=== PATIENT | male | born 1945 ===

== ENCOUNTER 2017-02-10 20:59 | Emergency (ER) | payer BC, MEDICARE ==
[2017-02-10 21:03] VITALS: BP 96/58
--- NOTE | 2017-02-10 21:13 | UC ---
Bite Injury/Animal HPI - HPI Summary HPI Summary: complaint of bug bite on his left arm that he noticed 2 nights ago washed the bite off and put antibiotic ointment over it used a hot compress over his arm today denies pain in arm small red rash around bite concerned about it being a tick bite - History of Current Complaint Chief Complaint: [place] Stated Complaint: BUG BITE Time Seen by Provider: 02/10/17 21:01 Hx Obtained From: Patient - Allergies/Home Medications Allergies/Adverse Reactions: Allergies Allergy/AdvReac Type Severity Reaction Status Date / Time No Known Allergies Allergy Verified 12/04/13 11:39 PMH/Surg Hx/FS Hx/Imm Hx Previously Healthy: Yes - Surgical History Surgical History: Yes Surgery Procedure, Year, and Place: inguinal hernia x 2 - Social History Occupation: Employed Full-time Lives: With Family Alcohol Use: Weekly Alcohol Amount: 3 x week Substance Use Type: None Smoking Status (MU): Never Smoked Tobacco Review of Systems Constitutional: Negative Skin: Rash Eyes: Negative ENT: Negative Respiratory: Negative Cardiovascular: Negative Gastrointestinal: Negative Genitourinary: Negative Motor: Negative Neurovascular: Negative Musculoskeletal: Negative Neurological: Negative Psychological: Negative All Other Systems Reviewed And Are Negative: Yes Physical Exam Triage Information Reviewed: Yes Appearance: No Pain Distress, Well-Nourished, Thin Vital Signs: Initial Vital Signs Temp 97.7 F 02/10/17 21:01 Pulse 61 02/10/17 21:01 Resp 16 02/10/17 21:01 BP 96/58 02/10/17 21:01 Pulse Ox 100 02/10/17 21:01 Vital Signs Reviewed: Yes Eyes: Positive: Conjunctiva Clear ENT: Positive: Pharynx normal, TMs normal Neck: Positive: No Lymphadenopathy Respiratory: Positive: Chest non-tender, Lungs clear, Normal breath sounds, No respiratory distress Cardiovascular: Positive: RRR, No Murmur, Pulses Normal, Brisk Capillary Refill Abdomen Description: Positive: Nontender, Soft Bowel Sounds: Positive: Present Musculoskeletal: Positive: No Edema Neurological: Positive: Alert Psychological Exam: Normal Skin: Positive: rashes - left forearm 2cm area of erythema surrounding a dark purple bite site Bite Injury Course/Dx - Course Course Of Treatment: exam completed. will treat for possible tick bite with prophylactic dosage of doxycycline and he will followup with PCP - Differential Dx/Diagnosis Differential Diagnosis/HQI/PQRI: Cellulitis, Puncture, Other - tick bite Provider Diagnoses: insect bite Discharge - Discharge Plan Condition: Stable Disposition: HOME Patient Education Materials: Tick Bite (ED) Referrals: Mikhail Quispe MD [Primary Care Provider] - Additional Instructions: Please review your discharge instructions. If your symptoms do not improve please call your primary care provider or return to urgent care.
[2017-02-10] MEDS ORDERED: DOXYcycline CAP(*) 100 MG PO ONE (21:14)
== END 2017-02-10 21:40 | disposition home or self-care (01) ==
LOC: UCEAST 20:59
DX: S50.862A Insect bite (nonvenomous) of left forearm, initial encounter (principal); W57.XXXA Bitten or stung by nonvenomous insect and other nonvenomous arthropods, initial encounter; Y93.9 Activity, unspecified; Y92.9 Unspecified place or not applicable
CPT/HCPCS: 99211; A9270-GY; G0463

== ENCOUNTER 2018-12-08 06:37 | Day surgery (SDC) | payer BC ==
[~2018-12-08 06:37] MED LIST: Buffered Lidocaine 1% SYRIN* 1 ML/SYRINGE INTRADERM ONE; Lactated Ringers 1000 ML Bag* 1,000 ML IV SCH; Lidocaine 1% MPF wEPI 200,000* 30 ML SDV ONE; Sodium Bicarbonate 8.4% IV* 50 ML VIAL ONE
[2018-12-08 09:04] VITALS: BP 114/62
--- NOTE | 2018-12-08 12:19 | OP ---
OPERATIVE REPORT: DATE OF OPERATION: 12/08/18 - KARMA DATE OF : 45 SURGEON: Alejo Brugess MD [employer] MECHANIC: RYAN Alas ANESTHESIOLOGIST: None. ANESTHESIA: Local only with 1% lidocaine and epinephrine and bicarbonate. PRE-OP DIAGNOSIS: Left carpal tunnel syndrome. POST-OP DIAGNOSIS: Left carpal tunnel syndrome. PROCEDURE PERFORMED: Left open carpal tunnel release. INDICATIONS: Mikhail is 73. He has severe left carpal tunnel syndrome. We had talked about his treatment options. He wanted to proceed with surgical release under local anesthesia. ESTIMATED BLOOD LOSS: 5 mL. COMPLICATIONS: None. FINDINGS: See above and below. DESCRIPTION OF PROCEDURE: Mikhail was seen in the preoperative holding area. The correct side, site, and procedure were identified. I infiltrated the operative area with buffered lidocaine. We came back to the operating room. The arm was prepped and draped in the usual fashion and time-out was performed. After the arm was prepped and draped, I went ahead and made a 2 to 3 cm longitudinal incision in the proximal palm. Dissection was carried down through the subcutaneous tissue and palmar fascia. I released the transverse carpal ligament just off the radial aspect of the hook of the hamate. The release was completed distally and then carried out proximally. Proximally, the nerve was very adherent to the surrounding tissues. I therefore decided the safer thing to do is an incision across the wrist joint in a Mariam-type fashion. This was done. I then released the remainder of the transverse carpal ligament and distal antebrachial fascia to a level several centimeters proximal to the wrist flexion crease. The median nerve was identified and protected throughout the procedure. Everything was looking good. I freed up the nerves. It was not adherent to the surrounding tissues. The wound was irrigated out. Skin was closed with 4-0 nylon sutures. Soft dressing was applied and he was taken to the recovery room in stable condition. [id number]/[facility] #: [id number] [facility]
== END 2018-12-08 09:03 | disposition home or self-care (01) ==
LOC: OREAST 06:37
PROVIDERS: ATTEND Orthopaedic Surgery Hand Surgery
DX: G56.02 Carpal tunnel syndrome, left upper limb (principal)
CPT/HCPCS: J2001